=== PATIENT | female | born 1995 | race Caucasian/White ===

== ENCOUNTER → 2018-06-08 | Outpatient (CLI) | payer SELFPAY ==
[2014-09-01 12:01] VITALS: BMI 44.2
[~2018-06-08] MED LIST: ACET-1718 PO; ACET-3017 PO; ALBU8.5H12 IH; ALBUDR INH; ALPR-429 PO; BUTA-324 PO; BUTA1CAP2 PO; BUTA1TAB14 PO; CALC-521 PO; CET10 PO; CLAD PO; CODE118S5 PO; DOXY-229 PO; ETHI1TAB26 PO; FAMO-67 PO; FLUT16SP20 NS; FLUTR; HYDR1TAB PO; IBUP800T37 PO; IPRA14.76 INH; IPRA4AER IH; KET10 PO; MIRENA; MON10 PO; NAPR220C12 PO; NORG1TAB82 PO; OLOP5DRO8 OU; PNV51CAP PO; PRE20 PO; TRA50 PO
== END ==
LOC: LAB 10:17
PROVIDERS: ATTEND Student in an Organized Health Care Education/Training Program
DX: Z11.3 Encounter for screening for infections with a predominantly sexual mode of transmission (principal); R10.2 Pelvic and perineal pain
CPT/HCPCS: 87491; 87591

== ENCOUNTER 2018-08-25 22:20 | Emergency (ER) | payer OTHER ==
[2014-09-01 12:01] VITALS: BMI 44.2
[~2018-08-25 22:20] MED LIST changes: +NORE1PAT3 TD
--- NOTE | 2018-08-25 22:23 | ER Report ---
History and Physical Time Seen By MD: 22:23 HPI/ROS CHIEF COMPLAINT: Right foot injury HISTORY OF PRESENT ILLNESS: 22-year-old female states she fell down stairs, landing on her foot. She describes her foot is hyperflexing and landing on the front part of her avery. She is able to walk on it, but notes significant pain. She took ibuprofen and Tylenol at home without improvement. She presents with 6/10 throbbing pain in the anterior aspect of her foot extending up her avery. He denies any other injuries. Allergies: Coded Allergies: sunflower seed (Unverified Allergy, Unknown, NONE LISTED, 02/17/18) Home Meds Active Scripts Norelgestromin/Ethin.estradiol (Xulane Patch) 1 Each Patch.tdwk, 1 PATCH.WK TD DIRECTED, #[address] 1 patch per week for 3 weeks and remove for 1 week for menses Prov:SAMUEL CEDENO DO 06/15/18 Butalb/Acetaminophen/Caff 50-325-40 Mg (FIORICET 50-325-40) 1 Each Tablet, 1-2 TAB PO Q4H, #30 TAB 0 Refills Pt to call to schedule annual exam Prov:RAJESH CURRY MD 06/06/18 Reviewed Nurses Notes: Yes Old Medical Records Reviewed: Yes Hx Smoking: Yes Smoking Status: Current: Every Day Smoker, Former Smoker Exposure to Second Hand Smoke?: No Hx Substance Use Disorder: No Hx Alcohol Use: No Constitutional Vital Sign - Last 24 Hours 08/25/18 22:25 Temp 97.8 Pulse 75 Resp 17 B/P (MAP) 123/81 Pulse Ox 96 O2 Delivery Room Air Physical Exam General appearance: Mild distress Respiratory: Chest is non tender, lungs are clear to auscultation. Cardiac: Regular rate and rhythm Extremities: Examination of the right foot reveals a neurovascularly intact foot. There is tenderness over the anterior ankle. There is some soft tissue swelling noted. All digits are neurovascularly intact. The dental lateral and medial malleoli are nontender. DIFFERENTIAL DIAGNOSIS: After history and physical exam differential diagnosis was considered for sprain, strain, fracture, dislocation, contusion Medical Decision Making EKG/Imaging Imaging X-ray: Right foot, 3 views was obtained. I viewed the images myself on the PACS system. My interpretation of the images is: No fracture no dislocation or malalignment. The radiologist interpretation had no clinically significant variation from this interpretation. ED Course/Re-evaluation ED Course Patient was admitted to an examination room. H&P was done. The differential diagnoses was considered. On clinical examination. Patient has a right foot injury. Diagnostic x-rays are performed which are unremarkable. Patient's discharged home in a Lonnie wrap and air cast to protect her ankle and anterior foot. She is discharged home with a Lortab prepack for temporary pain relief. She is advised to continue ibuprofen 200 mg 3-4 tablets 3 times a day with food. Apply ice to her foot for 2 days. Patient advised to follow-up with primary care if unimproved in 3-5 days. Decision to Disposition Date: Aug 25, 2018 Decision to Disposition Time: 23:00 Depart Departure Latest Vital Signs Vital Signs Date Time Temp Pulse Resp B/P (MAP) Pulse Ox O2 Delivery O2 Flow Rate FiO2 08/25/18 22:25 97.8 75 17 123/81 96 Room Air Impression: Primary Impression: Sprain of foot, right Condition: Improved Disposition: HOME OR SELF-CARE Referrals: SAMUEL CEDENO DO (PCP) Patient Instructions: Foot Sprain (ED) Additional Instructions: Take ibuprofen 200 mg 3-4 tablets 3 times a day with food Apply ice to your foot for 2 days Problem Qualifiers Primary Impression: Sprain of foot, right Encounter type: initial encounter Qualified Codes: S93.601A - Unspecified sprain of right foot, initial encounter LISANDRO JAIMES DO Aug 25, 2018 22:23
--- NOTE | 2018-08-25 22:51 | RADIOLOGY IMAGING REPORT ---
FACILITY: [facility] - [place] PATIENT NAME: Sia Andersen : 1995 MR: [id number] V: [id number] EXAM DATE: ORDERING PHYSICIAN: LISANDRO JAIMES TECHNOLOGIST: Location: [facility] [place] Patient: Sia Andersen : 1995 Visit/Account:[id number] Date of Sevice: 08/25/2018 FOOT 3 VIEWS RIGHT HISTORY: Fell. Foot injury. COMPARISON: No prior right foot x-rays. TECHNIQUE: AP, oblique, and lateral views of the right foot. FINDINGS: There is no fracture or dislocation. There is a large os navicularis. IMPRESSION: 1. No acute osseous abnormality of the right foot. Report Dictated By: Mariama Padilla at 08/25/2018 10:46 PM Report E-Signed By: Mariama Padilla at 08/25/2018 10:47 PM WSN:[id number]
[2018-08-25 23:00] VITALS: BP 105/77
[2018-08-25] MEDS ORDERED: ACET/HYDROC 5/325MG TH ER ONLY 2 TAB/BOTTLE PO ONE (23:05)
== END 2018-08-25 23:14 | disposition home or self-care (01) ==
LOC: ER 22:45
DX: S93.601A Unspecified sprain of right foot, initial encounter (principal)
CPT/HCPCS: 73630; 99283; L1930

== ENCOUNTER → 2018-12-13 | Outpatient (CLI) | payer OTHER ==
[2014-09-01 12:01] VITALS: BMI 44.2
[~2018-12-13] MED LIST changes: +SULF-198 PO
== END ==
LOC: LAB 15:03
PROVIDERS: ATTEND Obstetrics & Gynecology
DX: R30.0 Dysuria (principal); B96.89 Other specified bacterial agents as the cause of diseases classified elsewhere
CPT/HCPCS: 87077; 87088; 87186